=== PATIENT | male | born 1975 | race Caucasian/White ===

== ENCOUNTER 2025-08-31 10:21 | Day surgery (SDC) | payer OTHER ==
[2025-08-31] MEDS: Lidocaine 1% with EPINEPHrine 1:100,000 20 ML MDV INJECT ONE (10:31)
[2025-08-31] MEDS: Lactated Ringers 1,000 ML IV SCH (10:40)
[2025-08-31] MEDS ORDERED: Sodium Chloride 0.9% 10 ML Syringe FLUSH PRN (10:42)
== END 2025-08-31 14:40 | disposition home or self-care (01) ==
LOC: FB.SDS 10:21
PROVIDERS: ATTEND Surgery
DX: L72.3 Sebaceous cyst (principal); F17.210 Nicotine dependence, cigarettes, uncomplicated; Z88.0 Allergy status to penicillin; Z79.899 Other long term (current) drug therapy
CPT/HCPCS: 00300; 13101; 21933; 87070; 87075; 87205; J0665; J2004; J7120; 88304